=== PATIENT | female | born 1960 | race Two or more races ===

== ENCOUNTER 2025-05-17 18:36 | Inpatient (IN) | payer BC ==
[~2025-05-17] VITALS: Ht 160 cm; Wt 84.4 kg
[2025-05-17] MEDS: SODIUM CHLORIDE 0.9% 1,000 ML IV ONE (08:48)
--- NOTE | 2025-05-17 18:56 | ED.PDOC ---
History of Present Illness HPI Comments 64-year-old female who came to ER for nausea and vomiting. Patient denies any medical problems. Denies any abdominal surgeries. States she was having episodes of brownish vomitus since yesterday, 5 times, earlier today she started having blackish stools also. Noted abdominal distention. Denies any abdominal pain chest pains or shortness of breath. Denies taking any blood thinners REVIEW OF SYSTEMS: General: No fever, no chills, or fatigue HEENT: No sore throat, no earache, no congestion, no neck pain. Cardiac: No chest pain. No palpitations. Lungs: No shortness of breath, no cough. GI: (+) nausea, (+) vomiting, no diarrhea, no constipation, no abdominal pain, (+) melena : No dysuria, frequency, or urgency. No hematuria. Musculoskeletal: No joint pain , no joint swelling, no extremity edema. Skin: No rash, no itching. Neuro: No headache, no dizziness, no weakness EXAM: General: Awake, alert and oriented. No acute distress. Skin: Skin in warm, dry and intact, pale HEENT: The head is normocephalic and atraumatic. Conjunctivae are clear without exudates or hemorrhage. Sclera is non-icteric. EOM are intact. No signs of nystagmus. Eyelids are normal in appearance without swelling or lesions. Oral mucosa is pink and moist Neck: The neck is supple with normal range of motion. No JVD. Cardiac: Heart rate and rhythm are normal. No murmurs, gallops, or rubs are auscultated. Respiratory: No signs of respiratory distress. Lung sounds are clear in all lobes bilaterally without rales, rhonchi, or wheezes. Abdominal: Abdomen is distended , firm. Nontender to palpation. No guarding or rigidity. Extremities: Upper and lower extremities are atraumatic in appearance without deformity or edema. Neurological: The patient is awake, alert and oriented to person, place, and time with normal speech. Speech is clear. There is no facial asymmetry. Psychiatric: Appropriate mood and affect. 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 Was a procedure done?: No Differential Dx Considerations may include: Gastritis, gastroenteritis, GI bleed, diverticulitis, intra-abdominal mass, other X-Ray, Labs, Meds, VS Vital Signs Date Time Temp Pulse Resp B/P (MAP) Pulse Ox O2 Delivery O2 Flow Rate FiO2 05/17/25 20:47 98.8 116 20 138/90 (106) 100 98.8 05/17/25 18:40 98.6 112 17 136/87 98 98.6 Lab Test 05/17/25 21:33 05/17/25 19:36 Range/Units Lactic Acid Level Pending 2.4 *H 0.4-2.0 mmol/L White Blood Count 17.4 H 4.4-10.8 10^3/uL Red Blood Count 2.48 L 4.0-5.20 10^6/uL Hemoglobin 8.6 L 12.2-16.2 g/dL Hematocrit 25.7 L 36.0-46.0 % Mean Corpuscular Volume 103.8 H 80.0-100.0 fL Mean Corpuscular Hemoglobin 34.7 H 28.0-32.0 pg Mean Corpuscular Hemoglobin Concent 33.4 32.0-36.0 g/dL Red Cell Distribution Width 15.0 H 11.8-14.3 % Platelet Count 232 140-450 10^3/uL Mean Platelet Volume 8.2 6.9-10.8 fL Neutrophils (%) (Auto) 85.9 H 37.0-80.0 % Lymphocytes (%) (Auto) 5.0 L 10.0-50.0 % Monocytes (%) (Auto) 8.7 0.0-12.0 % Eosinophils (%) (Auto) 0.0 0.0-7.0 % Basophils (%) (Auto) 0.4 0.0-2.0 % Neutrophils # (Auto) 14.9 H 1.6-8.6 10 ^3/uL Lymphocytes # (Auto) 0.9 0.4-5.4 10 ^3/uL Monocytes # (Auto) 1.5 H 0-1.3 10 ^3/uL Eosinophils # (Auto) 0 0-0.8 10 ^3/uL Basophils # (Auto) 0.1 0-0.2 10 ^3/uL Nucleated Red Blood Cells 0.2 % Sodium Level 142 136-145 mmol/L Potassium Level 3.2 L 3.5-5.1 mmol/L Chloride Level 102 98-107 mmol/L Carbon Dioxide Level 25 20-31 mmol/L Anion Gap 15 5-15 Blood Urea Nitrogen 25 H 9-23 mg/dL Creatinine 0.60 0.550-1.02 mg/dL Glomerular Filtration Rate Calc 99 >90 mL/min BUN/Creatinine Ratio 41.7 H 10.0-20.0 Serum Glucose 128 H 74-106 mg/dL Calcium Level 9.4 8.7-10.4 mg/dL Total Bilirubin 0.8 0.2-1.0 mg/dL Aspartate Amino Transferase (AST) 112 H 13-40 U/L Alanine Aminotransferase (ALT) 35 7-40 U/L Alkaline Phosphatase 151 H 46-116 U/L Total Protein 7.2 5.7-8.2 g/dL Albumin 4.2 3.2-4.8 g/dL Current Medications Medications (Trade) Dose Ordered Sig/Karena Route Start Time Stop Time Status Last Admin Pantoprazole Sodium (Protonix) 40 mg ONCE ONCE IV 05/17/25 19:30 05/17/25 19:31 DC 05/17/25 20:52 Exam: CT CT AB PEL WITH IV CON ONLY History: abdominal pain distension gi bleed Comparison Study: None TECHNIQUE: Multidetector CT of the abdomen and pelvis with IV contrast. Axial, coronal and sagittal multiplanar reformats were obtained from the axial data set by the technologist. Radiation Dose Information: CT Dose: CTDI volume is 5.1 mGy. Dose-length product is 284.17 mGy*cm FINDINGS: Bibasilar atelectasis. Partially visualized heart is unremarkable. Mild hepatomegaly with hepatic steatosis. Spleen, gallbladder, pancreas and adrenal glands are unremarkable. 1 cm left renal cyst. Subcentimeter right renal lower pole hypodense lesion. Mild right pelviectasis. Otherwise, kidneys, ureters and urinary bladder are unremarkable. Uterus and adnexa are unremarkable. Mild gastric wall thickening with mild wall thickening of the proximal duodenum. The remainder of the small bowel loops unremarkable. Appendix is unremarkable. Mild wall thickening of the ascending colon, transverse colon, proximal descending colon , Sigmoid and rectum. Colonic diverticulosis. Trace ascites limits evaluation for pericolonic fat stranding/edema. No evidence of intraperitoneal free air. No evidence of aortic aneurysm or dissection. Mild atherosclerotic calcification of the aorta. No significant lymphadenopathy. Minimal body wall edema. No evidence of acute osseous abnormalities. Diffuse demineralization. IMPRESSION: Mild pancolitis. Gastroduodenitis. Colonic diverticulosis with Limited evaluation for diverticulitis, and trace ascites. Trace ascites. Time of 1ST Reevaluation: 18:53 Reevaluation 1ST: Unchanged Patient Education/Counseling: Need For Follow Up Family Education/Counseling: No Family Present SEPSIS Sepsis Screen Date sepsis recognized/suspect: May 17, 2025 Time Sepsis recognized/suspect: 1839 Recent Procedure: No On Antibiotic Therapy: No Respiratory Rate >20: No Heart Rate >90: Yes Temp<36 C (96.8 F) or >38.3 C: No SBP <90 or MAP <65 mmHG: No New Acute Mental Status Change: No Is the patient on CPAP, BIPAP,: No Physician Orders Urinalysis (05/17/25 19:20) Stool Occult Blood (05/17/25 19:20) Saline Lock (05/17/25 19:20) Ct Ab Pel With Iv Con Only (05/17/25 19:20) NS (05/17/25 21:45) Vital Signs Q1HR (05/17/25 21:45) Air Crew Officer (05/17/25 ) Rectal/Core Temps Only (05/17/25 21:45) Notify Md If Abnormal Vs (05/17/25 21:45) NS (05/17/25 21:45) Blood Culture (05/17/25 21:45) Urinalysis (05/17/25 21:45) NS (05/17/25 21:45) Vancomycin (05/17/25 21:45) Ceftriaxone Ivpb Rocephin (05/17/25 21:45) Vital Signs Date Time Temp Pulse Resp B/P (MAP) Pulse Ox O2 Delivery O2 Flow Rate FiO2 05/17/25 20:47 98.8 116 20 138/90 (106) 100 98.8 05/17/25 18:40 98.6 112 17 136/87 98 98.6 Laboratory Tests Test 05/17/25 19:36 05/17/25 21:33 Lactic Acid Level 2.4 mmol/L (0.4-2.0) *H Pending White Blood Count 17.4 10^3/uL (4.4-10.8) H Medications Medications Dose Ordered Sig/Karena Route Start Time Stop Time Status Last Admin Dose Admin Pantoprazole Sodium 40 mg ONCE ONCE IV 05/17/25 19:30 05/17/25 19:31 DC 05/17/25 20:52 Departure 1 Departure Time of Disposition: 21:47 Impression: Primary Impression: GI bleed Additional Impressions: Colitis Ascites Disposition: ADMITTED INPATIENT Condition: Stable Comments MDM: Extensive evaluation was performed in attempt to identify or rule out: (See differential diagnosis section) The following tests were ordered, and results were reviewed by me and discussed with patient: (See diagnostic results section) The following test were independently interpreted by me: N/A I reviewed and agreed with the following test results read by other providers: CT abdomen and pelvis with contrast I reviewed the following notes from the pt's past medical encounters: N/A Additional information was gathered from interviewing the following independent historians: Patient's daughter at bedside Discussion of management or test interpretation with external physician/other qualified health home care administrator: N/A Decision regarding hospitalization or escalation of hospital level of care: Risk and benefits of admission for further treatment of patient's condition was considered. Due to patient's current clinical condition, high risk of decline and poor outcome if discharged and need for further inpatient management and monitoring, patient will be admitted to the hospital. Drug therapy requiring intensive monitoring for toxicity: IV contrast Critical Care Note Critical Care Time?: No Stability Stability form required: No Heart Score Heart Score: Heart Score Response (Comments) Value History N/A 0 EKG N/A 0 Age N/A 0 Risk Factors N/A 0 Troponin N/A 0 Total 0 I personally scribed for SHOAIB INTERIANO MD ([email or web address]) on 05/17/25 at 18:56. El ectronically submitted by Lamine Ly ([facility]). I personally scribed for SHOAIB INTERIANO MD ([email or web address]) on 05/17/25 at 21:34. Electronically submitted by Lamine Ly ([facility]). SHOAIB INTERIANO MD May 17, 2025 18:56
[2025-05-17 19:48] LABS: Nucleated Red Blood Cells % 0.2 %
[2025-05-17 19:50] LABS: Hematocrit 25.7 % (36.0-46.0); Hemoglobin 8.6 g/dL (12.2-16.2); Mean Corpuscular Hemoglobin 34.7 pg (28.0-32.0); Mean Corpuscular Volume 103.8 fL (80.0-100.0)
[2025-05-17 20:05] LABS: Alanine Aminotransferase 35 U/L (7-40); Albumin 4.2 g/dL (3.2-4.8); Anion Gap 15 (5-15); BUN/Creatinine Ratio 41.7 (10.0-20.0); Bilirubin, Total 0.8 mg/dL (0.2-1.0); Calcium 9.4 mg/dL (8.7-10.4); Carbon Dioxide 25 mmol/L (20-31); Chloride 102 mmol/L (98-107); Sodium 142 mmol/L (136-145); Total Protein 7.2 g/dL (5.7-8.2)
[2025-05-17 20:18] LABS: Alkaline Phosphatase 151 U/L (46-116); Blood Urea Nitrogen 25 mg/dL (9-23); Glucose 128 mg/dL (74-106); Potassium 3.2 mmol/L (3.5-5.1)
[2025-05-17 20:25] LABS: Lactic Acid w/Reflex 2.4 mmol/L (0.4-2.0)
[2025-05-17] MEDS: IOHEXOL 300 MG/ML 100ML BOTTLE IJ ONE (20:44)
[2025-05-17] MEDS: PANTOPRAZOLE 40 MG/10 ML VIAL INJ IV ONE (20:52)
--- NOTE | 2025-05-17 21:03 | DVH ---
Exam: CT CT AB PEL WITH IV CON ONLY History: abdominal pain distension gi bleed Comparison Study: None TECHNIQUE: Multidetector CT of the abdomen and pelvis with IV contrast. Axial, coronal and sagittal multiplanar reformats were obtained from the axial data set by the technologist. Radiation Dose Information: CT Dose: CTDI volume is 5.1 mGy. Dose-length product is 284.17 mGy*cm FINDINGS: Bibasilar atelectasis. Partially visualized heart is unremarkable. Mild hepatomegaly with hepatic steatosis. Spleen, gallbladder, pancreas and adrenal glands are unremarkable. 1 cm left renal cyst. Subcentimeter right renal lower pole hypodense lesion. Mild right pelviectasis. Otherwise, kidneys, ureters and urinary bladder are unremarkable. Uterus and adnexa are unremarkable. Mild gastric wall thickening with mild wall thickening of the proximal duodenum. The remainder of the small bowel loops unremarkable. Appendix is unremarkable. Mild wall thickening of the ascending colon, transverse colon, proximal descending colon , Sigmoid and rectum. Colonic diverticulosis. Trace ascites limits evaluation for pericolonic fat stranding/edema. No evidence of intraperitoneal free air. No evidence of aortic aneurysm or dissection. Mild atherosclerotic calcification of the aorta. No significant lymphadenopathy. Minimal body wall edema. No evidence of acute osseous abnormalities. Diffuse demineralization. IMPRESSION: Mild pancolitis. Gastroduodenitis. Colonic diverticulosis with Limited evaluation for diverticulitis, and trace ascites. Trace ascites.
[2025-05-17] MEDS ORDERED: ONDANSETRON HCL 4 MG/2 ML VIAL IV PRN (22:45)
[2025-05-17] MEDS ORDERED: MORPHINE SULFATE INJ 2 MG/ml SYRG IV PRN (22:45)
[2025-05-17] MEDS ORDERED: NITROGLYCERIN 0.4 MG SL TAB SL PRN (22:45)
[2025-05-17 23:27] LABS: Hematocrit 25.3 % (36.0-46.0); Hemoglobin 8.2 g/dL (12.2-16.2)
[2025-05-17 23:46] LABS: INR 1.14 (0.9-1.15); Partial Thromboplastin Time 24.5 SEC (24.5-34.5); Prothrombin Time 11.9 sec (9.3-11.8)
[2025-05-18] MEDS: SODIUM CHLORIDE 0.9% 1,000 ML IV ONE ×3 (00:43→00:55)
[2025-05-18 00:54] VITALS: PULSE 100; RESP 18; O2SAT 99
[2025-05-18] MEDS: VANCOMYCIN 1GM/250ML KIT 250 ML IV ONE (01:24)
--- NOTE | 2025-05-18 01:37 | DVHHP2 ---
History of Present Illness Reason for Visit: Nausea and vomiting History of Present Illness 64-year-old female presents for evaluation of nausea and vomiting. She states his symptoms has been ongoing for the past two days. She reports vomiting dark colored emesis. She also states that over the past three days she has been ashley ving dark colored stools. Denies abdominal pain. No fever or chills. No other acute complaints. Past Medical History Denies Past Surgical History Denies Family History Noncontributory Smoke: No ALCOHOL: none Drugs: None Lives: with Family Review of Systems Review of Systems Review of systems are currently negative otherwise addressed in HPI. Allergies: Coded Allergies: NO KNOWN ALLERGIES (Unverified , 05/17/25) Medications Current Medications Medications Dose Ordered Sig/Karena Route Start Time Stop Time Status Last Admin Dose Admin Pantoprazole Sodium 40 mg DAILY IV 05/18/25 10:00 Ondansetron HCl 4 mg Q4HP PRN IV 05/17/25 22:45 Nitroglycerin 0.4 mg Q5MINP PRN SL 05/17/25 22:45 Morphine Sulfate 2 mg Q30M PRN IV 05/17/25 22:45 Exam Vital Signs Vital Signs Date Time Temp Pulse Resp B/P (MAP) Pulse Ox O2 Delivery O2 Flow Rate FiO2 05/18/25 01:17 98.5 100 18 141/81 (101) 99 98.5 05/18/25 00:54 Room Air* 0 21 Exam Gen: 64-year-old female in mild distress Skin: Warm, dry, normal color and texture, no rash. HEENT: Normocephalic atraumatic, mucous membranes moist and pink. Neck: Cervical and supraclavicular nodes normal without enlargement, trachea is midline, thyroid gland is normal without masses. Pulmonary: Clear to auscultation and percussion bilaterally. Cardiac: Regular rate and rhythm. No murmur Abdomen: Soft, nontender, nondistended, bowel sounds present all 4 quadrants, no guarding, no rigidity, no organomegaly. Extremities: No cyanosis, clubbing, no edema Neuro: Cranial nerves II through XII grossly intact, normal affect and speech, no focal motor deficits. Labs/Xrays ORDERING PHYSICIAN: SHOAIB INTERIANO MD PROCEDURE(s): ABPLIV - CT AB PEL WITH IV CON ONLY REASON: abdominal pain distension ? gi bleed ORDER NUMBER(s): [id number], ACCESSION NUMBER(s): [id number] Exam: CT CT AB PEL WITH IV CON ONLY History: abdominal pain distension gi bleed Comparison Study: None TECHNIQUE: Multidetector CT of the abdomen and pelvis with IV contrast. Axial, coronal and sagittal multiplanar reformats were obtained from the axial data set by the technologist. Radiation Dose Information: CT Dose: CTDI volume is 5.1 mGy. Dose-length product is 284.17 mGy*cm FINDINGS: Bibasilar atelectasis. Partially visualized heart is unremarkable. Mild hepatomegaly with hepatic steatosis. Spleen, gallbladder, pancreas and adrenal glands are unremarkable. 1 cm left renal cyst. Subcentimeter right renal lower pole hypodense lesion. Mild right pelviectasis. Otherwise, kidneys, ureters and urinary bladder are unremarkable. Uterus and adnexa are unremarkable. Mild gastric wall thickening with mild wall thickening of the proximal duodenum. The remainder of the small bowel loops unremarkable. Appendix is unremarkable. Mild wall thickening of the ascending colon, transverse colon, proximal desce nding colon , Sigmoid and rectum. Colonic diverticulosis. Trace ascites limits evaluation for pericolonic fat stranding/edema. No evidence of intraperitoneal free air. No evidence of aortic aneurysm or dissection. Mild atherosclerotic calcification of the aorta. No significant lymphadenopathy. Minimal body wall edema. No evidence of acute osseous abnormalities. Diffuse demineralization. IMPRESSION: Mild pancolitis. Gastroduodenitis. Colonic diverticulosis with Limited evaluation for diverticulitis, and trace ascites. Trace ascites. Labs Test 05/17/25 23:10 05/17/25 21:33 05/17/25 19:36 Range/Units Hemoglobin 8.2 L 12.2-16.2 g/dL Hematocrit 25.3 L 36.0-46.0 % Prothrombin Time 11.9 H 9.3-11.8 sec Prothrombin Time INR 1.14 0.9-1.15 Activated Partial Thromboplast Time 24.5 24.5-34.5 SEC Lactic Acid Level 2.8 *H 0.4-2.0 mmol/L White Blood Count 17.4 H 4.4-10.8 10^3/uL Red Blood Count 2.48 L 4.0-5.20 10^6/uL Mean Corpuscular Volume 103.8 H 80.0-100.0 fL Mean Corpuscular Hemoglobin 34.7 H 28.0-32.0 pg Mean Corpuscular Hemoglobin Concent 33.4 32.0-36.0 g/dL Red Cell Distribution Width 15.0 H 11.8-14.3 % Platelet Count 232 140-450 10^3/uL Mean Platelet Volume 8.2 6.9-10.8 fL Neutrophils (%) (Auto) 85.9 H 37.0-80.0 % Lymphocytes (%) (Auto) 5.0 L 10.0-50.0 % Monocytes (%) (Auto) 8.7 0.0-12.0 % Eosinophils (%) (Auto) 0.0 0.0-7.0 % Basophils (%) (Auto) 0.4 0.0-2.0 % Neutrophils # (Auto) 14.9 H 1.6-8.6 10 ^3/uL Lymphocytes # (Auto) 0.9 0.4-5.4 10 ^3/uL Monocytes # (Auto) 1.5 H 0-1.3 10 ^3/uL Eosinophils # (Auto) 0 0-0.8 10 ^3/uL Basophils # (Auto) 0.1 0-0.2 10 ^3/uL Nucleated Red Blood Cells 0.2 % Sodium Level 142 136-145 mmol/L Potassium Level 3.2 L 3.5-5.1 mmol/L Chloride Level 102 98-107 mmol/L Carbon Dioxide Level 25 20-31 mmol/L Anion Gap 15 5-15 Blood Urea Nitrogen 25 H 9-23 mg/dL Creatinine 0.60 0.550-1.02 mg/dL Glomerular Filtration Rate Calc 99 >90 mL/min BUN/Creatinine Ratio 41.7 H 10.0-20.0 Serum Glucose 128 H 74-106 mg/dL Calcium Level 9.4 8.7-10.4 mg/dL Total Bilirubin 0.8 0.2-1.0 mg/dL Aspartate Amino Transferase (AST) 112 H 13-40 U/L Alanine Aminotransferase (ALT) 35 7-40 U/L Alkaline Phosphatase 151 H 46-116 U/L Total Protein 7.2 5.7-8.2 g/dL Albumin 4.2 3.2-4.8 g/dL SEPSIS Sepsis Screen Date sepsis recognized/suspect: May 18, 2025 Time Sepsis recognized/suspect: 53 Recent Procedure: No On Antibiotic Therapy: Yes Respiratory Rate >20: No Heart Rate >90: Yes Temp<36 C (96.8 F) or >38.3 C: No SBP <90 or MAP <65 mmHG: No New Acute Mental Status Change: No Is the patient on CPAP, BIPAP,: No Physician Orders Urinalysis (05/17/25 19:20) Stool Occult Blood (05/17/25 19:20) Saline Lock (05/17/25 19:20) Ct Ab Pel With Iv Con Only (05/17/25 19:20) Sodium Chloride 0.9% (05/17/25 21:45) Vital Signs Q1HR (05/17/25 21:45) Retina Subspecialist (05/17/25 ) Rectal/Core Temps Only (05/17/25 21:45) Notify Md If Abnormal Vs (05/17/25 21:45) Blood Culture (05/17/25 21:45) Gastric Occult Blood (05/17/25 22:44) * Gi Dvh Senior Landscape Architect (05/17/25 22:44) Basic Metabolic Panel (05/18/25 04:00) Sodium Chloride 0.9% (05/17/25 22:45) Pantoprazole (Protonix) (05/18/25 10:00) Admit (05/17/25 22:44) Ondansetron Hcl (Zofran) (05/17/25 22:45) Complete Blood Count (05/18/25 04:00) Npo (Nothing By Mouth) Diet (05/18/25 Breakfast) Condition: Fair (05/17/25 22:44) Bedrest With Bathroom Privileg (05/17/25 22:44) Nitroglycerin Sublingual (Ntrostat Subli (05/17/25 22:45) Morphine Sulfate Injection (05/17/25 22:45) Stat Ekg For Chest Pain (05/17/25 22:44) Notify Md Of Changes From Base (05/17/25 22:44) Sound Equipment Mechanic For 24 Hours (05/17/25 22:44) Emergency Dysrhythmia Protocol (05/17/25 22:44) Rhythm Strips Once Every Shift (05/17/25 22:44) Oxygen By Nasal Cannula (05/17/25 22:44) Vital Signs Date Time Temp Pulse Resp B/P (MAP) Pulse Ox O2 Delivery O2 Flow Rate FiO2 05/18/25 01:17 98.5 100 18 141/81 (101) 99 98.5 05/18/25 00:54 98.5 100 18 141/81 (101) 99 98.5 05/18/25 00:54 100 18 99 Room Air* 0 21 05/17/25 22:56 99.1 112 18 129/75 (93) 99 99.1 05/17/25 20:47 98.8 116 20 138/90 (106) 100 98.8 05/17/25 18:40 98.6 112 17 136/87 98 98.6 Laboratory Tests Test 05/17/25 19:36 05/17/25 21:33 Lactic Acid Level 2.4 mmol/L (0.4-2.0) *H 2.8 mmol/L (0.4-2.0) *H White Blood Count 17.4 10^3/uL (4.4-10.8) H Medications Medications Dose Ordered Sig/Karena Route Start Time Stop Time Status Last Admin Dose Admin Ceftriaxone Sodium 50 ml @ 100 mls/hr ONCE ONCE IV 05/17/25 21:45 05/17/25 22:14 DC 05/18/25 00:54 100 MLS/HR Pantoprazole Sodium 40 mg ONCE ONCE IV 05/17/25 19:30 05/17/25 19:31 DC 05/17/25 20:52 40 MG Sodium Chloride 1,000 ml @ 1,000 mls/hr Q1H ONCE IV 05/17/25 21:45 05/17/25 22:44 DC 05/18/25 00:55 1,000 MLS/HR Sodium Chloride 1,000 ml @ 1,000 mls/hr Q1H ONCE IV 05/17/25 21:45 05/17/25 22:44 DC 05/18/25 00:55 1,000 MLS/HR Assessment/Plan Assessment/Plan Assessment GI bleed ? Colitis Possible early sepsis Plan Admit the patient to [facility] to the hospitalist GI consultation NPO Maintenance IV fluids Rocephin/Flagyl Pain management Continue treatment per orders. Plan discussed with: Patient My Orders Orders - HIRA ABREU Procedure Category Date Status Time Gastric Occult Blood LAB 05/17/25 Logged 22:44 * Gi Dvh Senior Landscape Architect CONS 05/17/25 Transmitted 22:44 Basic Metabolic Panel LAB 05/18/25 Logged 04:00 Sodium Chloride 0.9% PHA 05/17/25 In Process 22:45 Pantoprazole PHA 05/18/25 In Process (Protonix) 10:00 Admit ADMIT 05/17/25 Transmitted 22:44 Ondansetron Hcl PHA 05/17/25 In Process (Zofran) 22:45 Complete Blood Count LAB 05/18/25 Logged 04:00 Npo (Nothing By DIET 05/18/25 Transmitted Mouth) Diet Breakfast Condition: Fair ENRIQUETA 05/17/25 In Process 22:44 Bedrest With Bathroom [facility] 05/17/25 In Process Privileg 22:[address] [facility] 05/17/25 In Process Sublingual (Ntrostat 22:45 Morphine Sulfate PHA 05/17/25 In Process Injection 22:45 Stat Ekg For Chest [facility] 05/17/25 In Process Pain 22:44 Notify Md Of Changes [facility] 05/17/25 In Process From Base 22:44 Sound Equipment Mechanic For [facility] 05/17/25 In Process 24 Hours 22:44 Emergency Dysrhythmia [facility] 05/17/25 In Process Protocol 22:44 Rhythm Strips Once [facility] 05/17/25 In Process Every Shift 22:44 Oxygen By Nasal RT 05/17/25 Transmitted Cannula 22:44 Date of Service: May 17, 2025 Billing Provider: HIRA ABREU Common Visit Codes: [id number] INP/OBS CARE (HIGH) HIRA ABREU May 18, 2025 01:37
[2025-05-18 06:28] LABS: Sodium 143 mmol/L (136-145)
[2025-05-18 06:29] LABS: Anion Gap 14 (5-15); Carbon Dioxide 21 mmol/L (20-31)
[2025-05-18 06:32] LABS: Calcium 8.5 mg/dL (8.7-10.4); Chloride 108 mmol/L (98-107); Potassium 3.0 mmol/L (3.5-5.1)
[2025-05-18 06:35] LABS: BUN/Creatinine Ratio 28.0 (10.0-20.0); Blood Urea Nitrogen 14 mg/dL (9-23); Glucose 104 mg/dL (74-106); Hemoglobin 7.8 g/dL (12.2-16.2); Nucleated Red Blood Cells % 0.1 %
[2025-05-18 06:37] LABS: Hematocrit 23.6 % (36.0-46.0); Mean Corpuscular Hemoglobin 35.4 pg (28.0-32.0); Mean Corpuscular Volume 107.6 fL (80.0-100.0)
[2025-05-18] MEDS: PANTOPRAZOLE 40 MG/10 ML VIAL INJ IV SCH ×2 (07:10→22:00)
[2025-05-18] MEDS: SODIUM CHLORIDE 0.9% 1,000 ML IV SCH (09:00)
[2025-05-18 10:18] LABS: Magnesium 1.8 mg/dL (1.6-2.6)
[2025-05-18] MEDS: POTASSIUM CHL 20MEQ/100ML 100 ML IV SCH (10:28)
[2025-05-18] MEDS: PIPERACILLIN-TAZOB 3.375GM 100 ML IV ONE (10:48)
[2025-05-18 11:10] LABS: Lipase 46 U/L (12-53)
[2025-05-18 11:22] LABS: Iron 74.0 ug/dL (50-170)
[2025-05-18 11:25] LABS: Total Iron Binding Capacity 332.0 ug/dL (250-425)
[2025-05-18 12:31] LABS: Carcinoembryonic Antigen 2.85 ng/mL (<=5.0)
[2025-05-18 12:32] LABS: Ferritin 57.7 ng/mL (10-291)
[2025-05-18 13:40] VITALS: PULSE 95; RESP 14; O2SAT 98
[2025-05-18] MEDS: PIPERACILLIN-TAZOB 3.375GM 100 ML IV SCH (14:05)
[2025-05-18] MEDS: SOD CHL 0.9%/ KCL 40MEQ 1,000 ML IV SCH (15:00)
--- NOTE | 2025-05-18 15:06 | DVHCONRES ---
Date Seen: May 18, 2025 Resident Creating Document: BELLO MORA History of Present Illness 64-year-old female presents for evaluation of nausea and vomiting. She states his symptoms has been ongoing for the past two days. She reports vomiting dark colored emesis. She also states that over the past three days she has been having dark colored stools. Denies abdominal pain. Also reports weight loss for the past 2 years, patient does not see a doctor and never had colonoscopy or EGD. Patient denies taking any medications or denies any past medical history Patient seen and examined. Feeling better. Endoscopy scheduled for tomorrow. Allergies: Coded Allergies: NO KNOWN ALLERGIES (Unverified , 05/17/25) Current Medications Current Medications Medications (Trade) Dose Ordered Sig/Karena Route PRN Reason Start Time Stop Time Status Last Admin Pantoprazole Sodium (Protonix) 40 mg DAILY IV 05/18/25 10:00 05/18/25 09:02 DC 05/18/25 07:10 Ondansetron HCl (Zofran) 4 mg Q4HP PRN IV NAUSEA / VOMITING 05/17/25 22:45 Nitroglycerin (Ntrostat Sublingual) 0.4 mg Q5MINP PRN SL FOR CHEST PAIN 05/17/25 22:45 Morphine Sulfate 2 mg Q30M PRN IV FOR CHEST PAIN 05/17/25 22:45 Pantoprazole Sodium (Protonix) 40 mg BID IV 05/18/25 22:00 Sodium Chloride 1,000 ml @ 100 mls/hr Q10H IV 05/18/25 09:00 05/18/25 14:50 DC Potassium Chloride 100 ml @ 50 mls/hr Q2H IV 05/18/25 09:00 05/18/25 14:50 DC 05/18/25 10:28 Piperacillin Sod/ Tazobactam Sod 100 ml @ 25 mls/hr Q8HR IV 05/18/25 14:00 05/18/25 14:05 Potassium Chloride/Sodium Chloride 1,000 ml @ 100 mls/hr Q10H IV 05/18/25 15:00 UNV Vital Signs Vital Signs Date Time Temp Pulse Resp B/P (MAP) Pulse Ox O2 Delivery O2 Flow Rate FiO2 05/18/25 13:50 94 05/18/25 13:40 14 98 Room Air* 0 21 05/18/25 13:19 99.1 122/73 (89) 99.1 Physical Exam Patient lying in bed, in no acute distress General: Cachectic-appearing, afebrile, palor, mucosae are moist Cardiovascular: Regular S1 and S2. No murmurs, gallops or rubs. No JVD elevation. No pedal edema Respiratory: Normal B/L air entry on room air. Clear lung sounds on auscultation Abdomen: Soft, nontender, nondistended, normoactive bowel sounds, no rebound tenderness, no organomegaly, no masses Genitourinary: Deferred MSK/skin: Mobilizes 4 limbs. Skin is dry and warm Neurological: No motor, no sensitive deficits, normal speech. Pupils are isocoric and reactive. Psych/Mental Status: A/Ox3 Labs/Diagnostic Data Labs Test 05/18/25 14:04 05/18/25 12:08 05/18/25 05:54 05/17/25 23:10 Range/Units Erythrocyte Sedimentation Rate 18 0-20 mm/hr White Blood Count 14.0 H 4.4-10.8 10^3/uL Red Blood Count 2.19 L 4.0-5.20 10^6/uL Hemoglobin 7.8 L 12.2-16.2 g/dL Hematocrit 23.6 L 36.0-46.0 % Mean Corpuscular Volume 107.6 H 80.0-100.0 fL Mean Corpuscular Hemoglobin 35.4 H 28.0-32.0 pg Mean Corpuscular Hemoglobin Concent 32.9 32.0-36.0 g/dL Red Cell Distribution Width 15.3 H 11.8-14.3 % Platelet Count 197 140-450 10^3/uL Mean Platelet Volume 8.5 6.9-10.8 fL Neutrophils (%) (Auto) 80.3 H 37.0-80.0 % Lymphocytes (%) (Auto) 7.8 L 10.0-50.0 % Monocytes (%) (Auto) 10.8 0.0-12.0 % Eosinophils (%) (Auto) 0.6 0.0-7.0 % Basophils (%) (Auto) 0.5 0.0-2.0 % Neutrophils # (Auto) 11.2 H 1.6-8.6 10 ^3/uL Lymphocytes # (Auto) 1.1 0.4-5.4 10 ^3/uL Monocytes # (Auto) 1.5 H 0-1.3 10 ^3/uL Eosinophils # (Auto) 0.1 0-0.8 10 ^3/uL Basophils # (Auto) 0.1 0-0.2 10 ^3/uL Nucleated Red Blood Cells 0.1 % Reticulocyte Count (auto) 4.23 H 0.5-1.5 % Sodium Level 143 136-145 mmol/L Potassium Level 3.0 L 3.5-5.1 mmol/L Chloride Level 108 H 98-107 mmol/L Carbon Dioxide Level 21 20-31 mmol/L Anion Gap 14 5-15 Blood Urea Nitrogen 14 # 9-23 mg/dL Creatinine 0.50 L 0.550-1.02 mg/dL Glomerular Filtration Rate Calc 103 >90 mL/min BUN/Creatinine Ratio 28.0 H 10.0-20.0 Serum Glucose 104 74-106 mg/dL Calcium Level 8.5 L 8.7-10.4 mg/dL Magnesium Level 1.8 1.6-2.6 mg/dL Iron Level 74 50-170 ug/dL Total Iron Binding Capacity 332 250-425 ug/dL Percent Iron Saturation 22.3 15-50 % Ferritin 57.7 10-291 ng/mL C-Reactive Protein High Sensitivity 0.83 <1.0 mg/dL Lipase 46 12-53 U/L Carcinoembryonic Antigen 2.85 <=5.0 ng/mL Vitamin B12 Level 451 211-911 pg/mL Folic Acid 4.15 >5.38 ng/mL Plasma/Serum Blood Alcohol < 3.0 <10 mg/dL Prothrombin Time 11.9 H 9.3-11.8 sec Prothrombin Time INR 1.14 0.9-1.15 Activated Partial Thromboplast Time 24.5 24.5-34.5 SEC Test 05/17/25 21:33 05/17/25 19:36 Range/Units Lactic Acid Level 2.8 *H 0.4-2.0 mmol/L Total Bilirubin 0.8 0.2-1.0 mg/dL Aspartate Amino Transferase (AST) 112 H 13-40 U/L Alanine Aminotransferase (ALT) 35 7-40 U/L Alkaline Phosphatase 151 H 46-116 U/L Total Protein 7.2 5.7-8.2 g/dL Albumin 4.2 3.2-4.8 g/dL Assessment Intractable nausea and vomiting Sepsis Likely due to pancolitis Lactic acidosis Melena Anemia, likely mixed microcytic and macrocytic Transaminitis Unintentional weight loss Diverticulosis but no active diverticulitis CT abdomen shows mild pancolitis, Gastroduodenitis, Colonic diverticulosis with Limited evaluation for diverticulitis, and trace ascites. Plan/Recommendation Patient will be scheduled for upper endoscopy 05/19/2025. NPO after midnight. Continue clear liquid diet for now. Protonix 40 mg IV b.i.d. Gentle IV hydration Carafate b.i.d. Continue IV Zosyn IV iron supplemented Plan discussed with patient, daughter at bedside in which all questions have been answered Case discussed with Dr. Hdz Plan discussed with: Patient, Daughter BELLO MORA RESIDENT May 18, 2025 15:06
--- NOTE | 2025-05-18 15:24 | DVHPN2 ---
Subjective Patient denies any symptoms at this time Reviewed: Care Plan, H&P, Labs, Medications Changes from previous H/P or p: No Changes General: Per HPI Objective Vitals Vital Signs Date Time Temp Pulse Resp B/P (MAP) Pulse Ox O2 Delivery O2 Flow Rate FiO2 05/18/25 13:50 94 05/18/25 13:40 14 98 Room Air* 0 21 05/18/25 13:19 99.1 122/73 (89) 99.1 Intake/Output Intake and Output 05/18/25 07:00 Intake Total 2300 ml Balance 2300 ml Intake IV Total 2300 ml General Appearance: Alert, Oriented X3, Cooperative, mild distress HEENT: Atraumatic, PERRLA Lungs: Clear to auscultation, Normal air movement Cardiovascular: Normal S1, Normal S2 Abdomen: Normal bowel sounds, Soft, No tenderness, No hepatospenomegaly, No masses Musculoskeletal: Normal sensory function, Normal motor function Neuro: Normal gait, Normal speech, Strength at 5/5 X4 ext Skin: Dry, Intact Psych/Mental Status: Mental status NL, Mood NL Medications Current Medications Medications Dose Ordered Sig/Karena Route Start Time Stop Time Status Last Admin Dose Admin Ondansetron HCl 4 mg Q4HP PRN IV 05/17/25 22:45 Nitroglycerin 0.4 mg Q5MINP PRN SL 05/17/25 22:45 Morphine Sulfate 2 mg Q30M PRN IV 05/17/25 22:45 Pantoprazole Sodium 40 mg BID IV 05/18/25 22:00 Piperacillin Sod/ Tazobactam Sod 100 ml @ 25 mls/hr Q8HR IV 05/18/25 14:00 05/18/25 14:05 25 MLS/HR Potassium Chloride/Sodium Chloride 1,000 ml @ 100 mls/hr Q10H IV 05/18/25 15:00 Sucralfate 1 gm TID@0600,1130,2200 PO 05/18/25 15:15 UNV Laboratory Results Laboratory Tests 05/18/25 05:54 Chemistry Test 05/17/25 19:36 05/18/25 05:54 Albumin 4.2 g/dL (3.2-4.8) Calcium Level 9.4 mg/dL (8.7-10.4) 8.5 mg/dL (8.7-10.4) L Total Protein 7.2 g/dL (5.7-8.2) Magnesium Level 1.8 mg/dL (1.6-2.6) Coagulation Test 05/17/25 23:10 Prothrombin Time 11.9 sec (9.3-11.8) H Prothrombin Time INR 1.14 (0.9-1.15) Activated Partial Thromboplast Time 24.5 SEC (24.5-34.5) Lipid panel Test 05/18/25 05:54 Lipase 46 U/L (12-53) LFT Test 05/17/25 19:36 Alanine Aminotransferase (ALT) 35 U/L (7-40) Alkaline Phosphatase 151 U/L (46-116) H Aspartate Amino Transferase (AST) 112 U/L (13-40) H Total Bilirubin 0.8 mg/dL (0.2-1.0) Labs and/or images reviewed: Labs reviewed by me, Image(s) reviewed by me Assessment/Plan Assessment/Plan Impression: -sepsis -probable gastroenteritis -rule out upper GI bleed -cachexia -hypokalemia -microcytic anemia Plan: -GI consultation -PPI -continue IV Rocephin -IV fluids with potassium replacement -blood and stool cultures -start clear liquid diet, NPO after midnight -repeat labs in a.m. Total time spent with patient discussing and formulating plan of care: 35 minutes. This medical document was created using an electronic medical record system with [employer] dictation system. Although this document has been carefully reviewed, there may still be some phonetic and typographical errors. These areas are purely typographical due to imperfections of the software programs, and do not reflect any compromise in the patient's medical care. Plan discussed with: Patient, Other (RN) My Orders Orders - SARA MATTHEW NP Procedure Category Date Status Time Sod Chl 0.9%/ Kcl PHA 05/18/25 In Process 40meq 15:00 Complete Blood Count LAB 05/19/25 Verified 04:00 Basic Metabolic Panel LAB 05/19/25 Verified 04:00 Date of Service: May 18, 2025 Billing Provider: SARA MATTHEW NP Common Visit Codes: [id number] INP/OBS CARE(HIGH) SARA MATTHEW NP May 18, 2025 15:24
[2025-05-18] MEDS: SUCRALFATE 1 GM/10 ML ORAL SUSP PO SCH (15:39)
[2025-05-18 23:49] VITALS: BP 117/65; PULSE 88; RESP 17; TEMP 98.8; O2SAT 98
[2025-05-19] VITALS (16 sets, daily range): BP systolic 117–148; BP diastolic 65–97; PULSE 74–99; RESP 12–22; TEMP 97.5–98.8; O2SAT 95–100
[2025-05-19 06:47] LABS: Anion Gap 12 (5-15); Carbon Dioxide 22 mmol/L (20-31); Sodium 144 mmol/L (136-145)
[2025-05-19 06:48] LABS: Hematocrit 20.4 % (36.0-46.0); Mean Corpuscular Volume 108.0 fL (80.0-100.0)
[2025-05-19 06:50] LABS: Mean Corpuscular Hemoglobin 36.1 pg (28.0-32.0); Nucleated Red Blood Cells % 0.1 %
[2025-05-19 06:52] LABS: Calcium 8.0 mg/dL (8.7-10.4); Chloride 110 mmol/L (98-107); Potassium 3.0 mmol/L (3.5-5.1)
[2025-05-19 06:53] LABS: BUN/Creatinine Ratio 13.2 (10.0-20.0); Glucose 103 mg/dL (74-106)
[2025-05-19 06:55] LABS: Blood Urea Nitrogen 7 mg/dL (9-23)
[2025-05-19 07:05] LABS: Hemoglobin 6.8 g/dL (12.2-16.2)
[2025-05-19] MEDS ORDERED: POTASSIUM CHL 20MEQ/100ML 100 ML IV SCH (09:45)
--- NOTE | 2025-05-19 10:06 | DVHPN2 ---
Subjective Patient reports having black stool Reviewed: Care Plan, H&P, Labs, Medications Changes from previous H/P or p: No Changes General: Per HPI Objective Vitals Vital Signs Date Time Temp Pulse Resp B/P (MAP) Pulse Ox O2 Delivery O2 Flow Rate FiO2 05/19/25 09:00 98.1 87 16 119/74 (89) 95 98.1 05/19/25 08:21 Room Air* 0 21 Intake/Output Intake and Output 05/19/25 07:00 Intake Total 1000 ml Balance 1000 ml Intake Oral 0 ml IV Total 1000 ml # Voids 3 # Bowel Movements 1 General Appearance: Alert, Oriented X3, Cooperative, mild distress HEENT: Atraumatic, PERRLA Lungs: Clear to auscultation, Normal air movement Cardiovascular: Normal S1, Normal S2 Abdomen: Normal bowel sounds, Soft, No tenderness, No hepatospenomegaly, No masses Musculoskeletal: Normal sensory function, Normal motor function Neuro: Normal gait, Normal speech, Strength at 5/5 X4 ext Skin: Dry, Intact, Other (Pallor) Psych/Mental Status: Mental status NL, Mood NL Medications Current Medications Medications Dose Ordered Sig/Karena Route Start Time Stop Time Status Last Admin Dose Admin Ondansetron HCl 4 mg Q4HP PRN IV 05/17/25 22:45 Nitroglycerin 0.4 mg Q5MINP PRN SL 05/17/25 22:45 Morphine Sulfate 2 mg Q30M PRN IV 05/17/25 22:45 Pantoprazole Sodium 40 mg BID IV 05/18/25 22:00 05/19/25 08:48 40 MG Piperacillin Sod/ Tazobactam Sod 100 ml @ 25 mls/hr Q8HR IV 05/18/25 14:00 05/19/25 06:25 25 MLS/HR Potassium Chloride/Sodium Chloride 1,000 ml @ 100 mls/hr Q10H IV 05/18/25 15:00 05/19/25 01:30 100 MLS/HR Sucralfate 1 gm TID@0600,1130,2200 PO 05/18/25 15:15 05/18/25 22:00 1 GM Potassium Chloride 100 ml @ 50 mls/hr Q2H IV 05/19/25 09:45 05/19/25 15:44 UNV Laboratory Results Laboratory Tests 05/19/25 05:53 Chemistry Test 05/19/25 05:53 Calcium Level 8.0 mg/dL (8.7-10.4) L Microbiology Microbiology Date/Time Source Procedure Growth Status 05/17/25 22:11 Blood Blood Culture - Preliminary NO GROWTH AFTER 24 HOURS OF INCUBATION. Resulted Labs and/or images reviewed: Labs reviewed by me, Image(s) reviewed by me Assessment/Plan Assessment/Plan Impression: -sepsis -probable gastroenteritis -rule out upper GI bleed -cachexia -hypokalemia -microcytic anemia -elevated CA 125 Plan: Events: Patient's H&H decreased. 1 unit PRBC to be given. Patient's potassium 3.0. -KCl 60 mEq use -GI consultation : Plans for EGD today -PPI, Carafate -continue IV Rocephin -IV fluids with potassium replacement -blood and stool cultures -long discussion made with the patient's daughters as well as patient regarding lab work. Plans for transvaginal ultrasound tomorrow -repeat labs in a.m. Total time spent with patient discussing and formulating plan of care: 35 minutes. Total time spent with patient and family regarding advance care plannin minutes. This medical document was created using an electronic medical record system with [employer] dictation system. Although this document has been carefully reviewed, there may still be some phonetic and typographical errors. These areas are purely typographical due to imperfections of the software programs, and do not reflect any compromise in the patient's medical care. Plan discussed with: Patient, Daughter, Other (RN) My Orders Orders - SARA MATTHEW NP Procedure Category Date Status Time Sod Chl 0.9%/ Kcl PHA 05/18/25 In Process 40meq 15:00 Potassium Chl Meño PHA 05/19/25 Verified KCL 10:00 Date of Service: May 19, 2025 Billing Provider: SARA MATTHEW NP Common Visit Codes: [id number] INP/OBS CARE(HIGH) Secondary Visit Codes: [id number] CARE PLAN 30 MINUTES SARA MATTHEW NP May 19, 2025 10:06
[2025-05-19] MEDS ORDERED: SODIUM CHLORIDE LOCK 10 ML ONE (10:16)
[2025-05-19] MEDS: POTASSIUM CHLORIDE 60 MEQ, LIDOCAINE 1% (LOCAL ANESTH.) 6 ML in SODIUM CHL 0.9% 500 ML IV ONE (11:09)
--- NOTE | 2025-05-19 12:42 | DVH ---
EXAM: XY CHEST XRAY 1 VIEW Indication: Pain Technique: Single frontal view of the chest was obtained Comparison: None FINDINGS: Lines and Tubes: None Lungs: No focal consolidation. Pleura: No effusion. No pneumothorax. Cardiomediastinal contours: Unremarkable. Atherosclerotic vascular calcifications of the thoracic aorta are noted. Bones: No acute osseous abnormality. IMPRESSION: No acute cardiopulmonary disease.
[2025-05-19] MEDS: LIDOCAINE VISCOUS 2% 15ML UD ONE (15:12)
[2025-05-19] MEDS: diphenhydrAMINE HCL 50 MG/1 ML VL ONE (15:14)
[2025-05-19] MEDS: MIDAZOLAM HCL 5 MG/ML-1ML VIAL ONE (15:14)
[2025-05-19] MEDS: fentaNYL CITRATE 100 MCG/2 ML VL ONE (15:14)
--- NOTE | 2025-05-19 15:41 | DVHOP2 ---
Operative Report DATE OF OPERATION: 05/19/25 PROCEDURE: Upper Endoscopy with biopsy. PREOPERATIVE INDICATION: The patient is a 64 -year-old female undergoing endoscopy for anemia melena nausea and vomiting POSTOPERATIVE DIAGNOSES: 1. Patient had a deep 1-1.5 cm pre-pyloric antral gastric ulcer Calixto classification C with surrounding hyperemia erythema mucosal edema 2. Patient had moderate gastroduodenitis with multiple other superficial ero sions but no fresh or old blood in the upper GI tract 3. There was a 1-2 cm sliding-type hiatal hernia with slightly irregular squamocolumnar junction 4. There was a proximal esophageal stricture that was auto dilated with the endoscope PROCEDURE PERFORMED BY: Howard Hdz GI NURSE: Judi SCOPE: Olympus videoendoscope. ASA CLASS: 3 PREOPERATIVE MEDICATIONS: Versed 2 mg, Fentanyl 75 mcg, Benadryl 50 mg I administered moderate sedation throughout this _8_ minutes procedure. An independent trained observer pushed medications at my direction, and monitored the patient's level of consciousness and physiological status throughout. PROCEDURE IN DETAIL: After obtaining an informed consent, the patient was placed on left lateral decubitus position. The patient was then sedated with the above medications. A bite block was placed between her teeth. The endoscope was then passed through the oropharynx. Patient had a slight proximal esophageal stricture and endoscope was passed into the esophagus, and through the stomach and pylorus up to the second and third part of the duodenum. The endoscope was t hen withdrawn. The 2nd and 3rd part of the duodenum were normal. Duodenal bulb and postbulbar area area showed duodenitis with superficial erosions Biopsies were obtained. The pre-pyloric area and antrum showed gastritis with multiple tiny gastric ulcers and erosions There was a bigger 1.5 cm deep pre-pyloric antral gastric ulcer Calixto classification C with surrounding hyperemia erythema and mucosal edema Gastric antral biopsies were obtained. On retroflexion the fundus and cardia were normal. There was no fresh or old blood in the upper GI tract at this time The endoscope was then withdrawn into the distal esophagus where the patient had a 1-2 cm sliding-type hiatal hernia with slightly irregular squamocolumnar junction GE junction biopsies were obtained. The patient did have minimal mucosal oozing at the proximal esophagus area where the patient had a slight stricture that was auto dilated with the endoscope The patient tolerated the procedure well without difficulty. COMPLICATIONS : None SPECIMENS: Duodenal biopsies Gastric biopsies GE junction biopsies DISPOSITION: Transfer back to the floor Stable PLAN: 1. Await for biopsy result 2. Will place pt on Protonix 40 mg bid IV 3. Clear liquid diet advance to full liquid 4. Carafate suspension 1 g p.o. 4 times a day 5. Continue to monitor labs 6. Possible elective colonoscopy once patient is medically stabilized HOWARD HDZ MD May 19, 2025 15:41
[2025-05-19] MEDS: IRON SUCROSE COMPLEX 110 ML IV ONE (16:23)
[2025-05-19 16:29] LABS: Hemoglobin 9.4 g/dL (12.2-16.2); Nucleated Red Blood Cells % 0.3 %
[2025-05-19 16:31] LABS: Hematocrit 28.3 % (36.0-46.0); Mean Corpuscular Hemoglobin 34.4 pg (28.0-32.0); Mean Corpuscular Volume 103.6 fL (80.0-100.0)
[2025-05-19] MEDS: SUCRALFATE 1 GM/10 ML ORAL SUSP PO SCH (17:24)
--- NOTE | 2025-05-19 17:41 | DVH ---
Technique: Real-time ultrasound images through the pelvis using a transabdominal transducer. Indication: elevated CA 125 Comparison: CT abdomen pelvis from 05/17/2025 Findings: The uterus measures 5.5 cm. The endometrial stripe measures 4 mm. There are no focal masses. There is no abnormal flow in the endometrium. Cervical nabothian cysts measuring 13 mm. Right ovary measures 2.2 x 1.8 x 2.8 cm. Normal flow on color doppler images. Right ovarian/ adnexal region hypoechoic lesion /mass measuring 2.8 cm,. Left ovary measures 2.9 x 2.2 x 1.9 cm. Normal flow on color doppler images. No focal masses are identified. Small amount of free pelvic fluid. Impression: Right ovarian/ adnexal region hypoechoic lesion measuring 2.8 cm. Recommend MRI pelvis with and without contrast and environmental maintenance worker consultation to further evaluate exclude an ovarian neoplasm, especially given that the patient has elevated CA 125. Small amount of free pelvic fluid.
[2025-05-20] VITALS (8 sets, daily range): BP systolic 123–155; BP diastolic 74–91; PULSE 84–99; RESP 12–19; TEMP 97.4–99.3; O2SAT 95–98
[2025-05-20 07:01] LABS: Hematocrit 28.6 % (36.0-46.0); Hemoglobin 9.5 g/dL (12.2-16.2); Mean Corpuscular Hemoglobin 34.0 pg (28.0-32.0); Mean Corpuscular Volume 101.9 fL (80.0-100.0); Nucleated Red Blood Cells % 0.5 %
[2025-05-20] MEDS ORDERED: fentaNYL CITRATE 100 MCG/2 ML VL ONE (10:57)
[2025-05-20] MEDS ORDERED: SODIUM CHLORIDE LOCK 0 ML ONE (10:57)
[2025-05-20] MEDS ORDERED: KETAMINE 50mg/ML 1ml syringe ONE (10:57)
[2025-05-20] MEDS ORDERED: ONDANSETRON HCL 4 MG/2 ML VIAL ONE (10:57)
[2025-05-20] MEDS ORDERED: MIDAZOLAM HCL 2MG/2ML 2ml VIAL (1mg/ml) ONE (10:57)
[2025-05-20] MEDS ORDERED: LIDOCAINE 1% INJ PF 5ML AMP ONE (10:57)
[2025-05-20] MEDS ORDERED: PROPOFOL 10 MG/ML 20 ML IV ONE (10:57)
--- NOTE | 2025-05-20 11:07 | DVHPN2 ---
Subjective Denies any symptoms at this time Reviewed: Care Plan, H&P, Labs, Medications Changes from previous H/P or p: Changes General: Per HPI Objective Vitals Vital Signs Date Time Temp Pulse Resp B/P (MAP) Pulse Ox O2 Delivery O2 Flow Rate FiO2 05/20/25 09:00 98.6 99 17 134/74 (94) 97 98.6 05/20/25 08:07 Room Air* 0 21 Intake/Output Intake and Output 05/20/25 07:00 Intake Total 2945 ml Balance 2945 ml Intake Oral 500 ml IV Total 1845 ml Blood Product 300 ml Packed Cells 300 ml # Voids 5 # Bowel Movements 4 General Appearance: Alert, Oriented X3, Cooperative, mild distress HEENT: Atraumatic, PERRLA Lungs: Clear to auscultation, Normal air movement Cardiovascular: Normal S1, Normal S2 Abdomen: Normal bowel sounds, Soft, No tenderness, No hepatospenomegaly, No masses Musculoskeletal: Normal sensory function, Normal motor function Neuro: Normal gait, Normal speech, Strength at 5/5 X4 ext Skin: Dry, Intact, Other (Pallor) Psych/Mental Status: Mental status NL, Mood NL Medications Current Medications Medications Dose Ordered Sig/Karena Route Start Time Stop Time Status Last Admin Dose Admin Ondansetron HCl 4 mg Q4HP PRN IV 05/17/25 22:45 Nitroglycerin 0.4 mg Q5MINP PRN SL 05/17/25 22:45 Morphine Sulfate 2 mg Q30M PRN IV 05/17/25 22:45 Pantoprazole Sodium 40 mg BID IV 05/18/25 22:00 05/20/25 09:18 40 MG Piperacillin Sod/ Tazobactam Sod 100 ml @ 25 mls/hr Q8HR IV 05/18/25 14:00 05/20/25 06:34 25 MLS/HR Potassium Chloride/Sodium Chloride 1,000 ml @ 100 mls/hr Q10H IV 05/18/25 15:00 05/20/25 06:34 100 MLS/HR Sucralfate 1 gm TID@0600,1130,2200 PO 05/18/25 15:15 05/18/25 22:00 1 GM Sucralfate 1 gm QID@0600,1130,1700,2200 PO 05/19/25 17:00 05/20/25 06:00 1 GM Iron Sucrose 110 ml @ 110 mls/hr Q24H IV 05/20/25 12:00 05/24/25 12:59 Laboratory Results Laboratory Tests 05/20/25 06:01 Chemistry Test 05/20/25 06:01 Albumin Pending Calcium Level Pending Total Protein Pending LFT Test 05/20/25 06:01 Alanine Aminotransferase (ALT) Pending Alkaline Phosphatase Pending Aspartate Amino Transferase (AST) Pending Total Bilirubin Pending Microbiology Microbiology Date/Time Source Procedure Growth Status 05/17/25 22:11 Blood Blood Culture - Preliminary NO GROWTH AFTER 48 HOURS OF INCUBATION. Resulted Labs and/or images reviewed: Labs reviewed by me, Image(s) reviewed by me Assessment/Plan Assessment/Plan Impression: -sepsis -probable gastroenteritis -rule out upper GI bleed -cachexia -hypokalemia -microcytic anemia -right ovarian mass -alcoholism Plan: Events: EGD performed. No active bleeding. Esophagitis, gastritis, gastric ulcer noted -pelvic ultrasound reviewed. MRI of the pelvis if able given dental implants -GI consultation : Plans for EGD today -PPI, Carafate -continue IV Zosyn -IV fluids with potassium replacement -repeat labs in a.m. Total time spent with patient discussing and formulating plan of care: 35 minutes. This medical document was created using an electronic medical record system with [employer] dictation system. Although this document has been carefully reviewed, there may still be some phonetic and typographical errors. These areas are purely typographical due to imperfections of the software programs, and do not reflect any compromise in the patient's medical care. Plan discussed with: Patient, Other (RN) My Orders Orders - SARA MATTHEW NP Procedure Category Date Status Time Comprehensive LAB 05/20/25 In Process Metabolic Panel 10:18 Date of Service: May 20, 2025 Billing Provider: SARA MATTHEW NP Common Visit Codes: [id number] INP/OBS CARE(HIGH) SARA MATTHEW NP May 20, 2025 11:07
[2025-05-20 11:19] LABS: Alanine Aminotransferase 22 U/L (7-40); Albumin 3.3 g/dL (3.2-4.8); Alkaline Phosphatase 110 U/L (46-116); Anion Gap 12 (5-15); Carbon Dioxide 21 mmol/L (20-31); Glucose 92 mg/dL (74-106); Potassium 3.8 mmol/L (3.5-5.1); Sodium 142 mmol/L (136-145); Total Protein 6.0 g/dL (5.7-8.2)
[2025-05-20 11:20] LABS: BUN/Creatinine Ratio 9.8 (10.0-20.0); Bilirubin, Total 0.7 mg/dL (0.2-1.0); Blood Urea Nitrogen < 5 mg/dL (9-23); Calcium 8.3 mg/dL (8.7-10.4); Chloride 109 mmol/L (98-107)
[2025-05-20] MEDS: IRON SUCROSE COMPLEX 110 ML IV SCH (11:42)
[2025-05-20] MEDS: THIAMINE 100mg/ml INJ (200mg/2ml VIAL) IV SCH (11:42)
[2025-05-20] MEDS ORDERED: GADOTERATE MEG 10 MMOL/20ml INJ (0.5MMOL/ml) IV ONE (14:34)
--- NOTE | 2025-05-20 16:49 | DVHPN2 ---
Progress Note Date Seen: May 20, 2025 Resident Creating Document: BELLO MORA RESIDENT Medical Necessity Reason Pt with a Central, PICC or Fol: No Subjective Review of Systems 64-year-old female presents for evaluation of nausea and vomiting. She states his symptoms has been ongoing for the past two days. She reports vomiting dark colored emesis. She also states that over the past three days she has been having dark colored stools. Denies abdominal pain. Also reports weight loss for the past 2 years, patient does not see a doctor and never had colonoscopy or EGD. Patient denies taking any medications or denies any past medical history 05/18-Patient seen and examined. Feeling better. Endoscopy scheduled for tomorrow. 05/20-patient reports feeling better. No acute complaint. Objective vital signs Vital Sign Date Time Temp Pulse Resp B/P (MAP) Pulse Ox O2 Delivery O2 Flow Rate FiO2 05/20/25 16:37 98.2 92 19 139/84 (102) 98 98.2 05/20/25 08:07 Room Air* 0 21 Total Intake and Output 05/19/25 05/19/25 05/20/25 15:00 23:00 07:00 Intake Total 710 ml 835 ml 1400 ml Balance 710 ml 835 ml 1400 ml medications Current Medications Medications Dose Ordered Sig/Karena Route Start Time Stop Time Status Last Admin Dose Admin Ondansetron HCl 4 mg Q4HP PRN IV 05/17/25 22:45 Nitroglycerin 0.4 mg Q5MINP PRN SL 05/17/25 22:45 Morphine Sulfate 2 mg Q30M PRN IV 05/17/25 22:45 Pantoprazole Sodium 40 mg BID IV 05/18/25 22:00 05/20/25 09:18 40 MG Piperacillin Sod/ Tazobactam Sod 100 ml @ 25 mls/hr Q8HR IV 05/18/25 14:00 05/20/25 16:15 25 MLS/HR Potassium Chloride/Sodium Chloride 1,000 ml @ 100 mls/hr Q10H IV 05/18/25 15:00 05/20/25 06:34 100 MLS/HR Sucralfate 1 gm QID@0600,1130,1700,2200 PO 05/19/25 17:00 05/20/25 11:42 1 GM Iron Sucrose 110 ml @ 110 mls/hr Q24H IV 05/20/25 12:00 05/24/25 12:59 05/20/25 11:42 110 MLS/HR Thiamine HCl 100 mg DAILY IV 05/20/25 11:15 05/20/25 11:42 100 MG Examination Patient lying in bed, in no acute distress General: Cachectic-appearing, afebrile, palor, mucosae are moist Cardiovascular: Regular S1 and S2. No murmurs, gallops or rubs. No JVD elevation. No pedal edema Respiratory: Normal B/L air entry on room air. Clear lung sounds on auscultation Abdomen: Soft, nontender, nondistended, normoactive bowel sounds, no rebound tenderness, no organomegaly, no masses Genitourinary: Deferred MSK/skin: Mobilizes 4 limbs. Skin is dry and warm Neurological: No motor, no sensitive deficits, normal speech. Pupils are isocoric and reactive. Psych/Mental Status: A/Ox3 laboratory and microbiology Laboratory Tests 05/20/25 06:01 Test 05/20/25 06:01 Range/Units Serum Glucose 92 74-106 mg/dL Microbiology Date/Time Source Procedure Growth Status 05/20/25 10:48 Stool Stool Culture - Preliminary Resulted 05/20/25 10:48 Stool Shiga Toxin I & II - Final Resulted 05/17/25 22:11 Blood Blood Culture - Preliminary NO GROWTH AFTER 48 HOURS OF INCUBATION. Resulted Labs and/or images reviewed: Labs reviewed by me, Image(s) reviewed by me Problem List/Assessment/Plan Problem List/Assessment/Plan Intractable nausea and vomiting Melena secondary to pre-pyloric gastric ulcer Moderate gastroduodenitis ? Right ovarian/adnexal region mass Sepsis Likely due to pancolitis Lactic acidosis 1-2 cm sliding-type hiatal hernia Anemia, likely mixed microcytic and macrocytic Transaminitis Unintentional weight loss Diverticulosis but no active diverticulitis CT abdomen shows mild pancolitis, Gastroduodenitis, Colonic diverticulosis with Limited evaluation for diverticulitis, and trace ascites. POSTOPERATIVE DIAGNOSES: 1. Patient had a deep 1-1.5 cm pre-pyloric antral gastric ulcer Calixto classification C with surrounding hyperemia erythema mucosal edema 2. Patient had moderate gastroduodenitis with multiple other superficial erosions but no fresh or old blood in the upper GI tract 3. There was a 1-2 cm sliding-type hiatal hernia with slightly irregular squamocolumnar junction 4. There was a proximal esophageal stricture that was auto dilated with the endoscope Plan/Recommendation Continue Protonix 40 mg IV b.i.d., diet advanced to full liquid. Continue Carafate suspension 1 g p.o. 4 times a day. Recommended colonoscopy with patient declined. Risks explained. H&H stable, monitor H&H [place] [id number] Pelvic ultrasound shows Right ovarian/ adnexal region hypoechoic lesion measuring 2.8 cm. Recommend MRI pelvis with and without contrast and horse show manager consultation to further evaluate exclude an ovarian neoplasm, especially given that the patient has elevated CA 125. Small amount of free pelvic fluid. Recommend OBGYN consultation Stool culture negative preliminary Gentle IV hydration Continue IV Zosyn IV iron supplemented Plan discussed with patient, daughter at bedside in which all questions have been answered Case discussed with Dr. Hdz Plan discussed with: Patient Sepsis reassessment post fluid Is the fluid challenge complet: Yes Date of Reassessment: May 18, 2025 Time of Reassessment: 154 Blood Culture Time: 2145 Time Antibiotics Given: 005 Systolic BP: 129 Diastolic BP: 56 Blood Pressure Mean: 80 Respiration: 17 Respiratory Effort: Non-Labored, Labored Respiratory Pattern: Regular Oxygen Saturation: 99 Pulse Rate: 97 Pulse Location: Radial Pulse Strength: Normal Pulse Assessment Method: Palpation Pulse Rhythm: Regular Capillary Refill: < 3 seconds Heart Sounds: S1 & S2 Breath sounds: Clear Skin Moisture: Dry Skin Tugor: WNL Skin Color: WNL BELLO MORA RESIDENT May 20, 2025 16:49
[2025-05-20 17:16] LABS: Urine Protein, UAD Negative (Negative)
--- NOTE | 2025-05-20 21:03 | DVH ---
EXAM: MRI PELVIS WITH CONTRAST MRI HISTORY: Ovarian mass COMPARISON: US PELVIC on DOS: 05/19/25 TECHNIQUE: Multiplanar, multisequence imaging of the pelvis for genitourinary evaluation was performed with and without contrast. FINDINGS: REPRODUCTIVE: Normal appearance of the uterus without suspicious mass. Normal size given the patient's age. Small nabothian cysts. Cervix appears within normal limits endometrial stripe is within normal limits and size. Atrophy junctional zone in regards to the clinical question, markedly low T2 signal, nonenhancing structure located along the right adnexa likely corresponding with area of concern measuring 2 cm. BLADDER: Normal enhancement without suspicious lesions or hydronephrosis. VISUALIZED BOWEL: Minimal sigmoid diverticulosis VASCULATURE: Unremarkable. LYMPHADENOPATHY: No evidence for lymphadenopathy. ASCITES: Small volume pelvic ascites MUSCULOSKELETAL: Bone marrow signal is normal. OTHER: None IMPRESSION: 1. Oval circumscribed T2 hypointense structure with intrinsic low T1 signal. No significant enhancement. Low T2 signal adnexal masses raises possibility for fibroma /fibrous component given circumscribed nature, consideration for ovarian fibroma. 2. Lack of enhancement in the setting of fibrous nature is considered atypical and therefore consider short-term imaging follow up however given lack of overall enhancement, malignancy is considered unlikely 3. Small volume pelvic ascites and sigmoid diverticulosis.
[2025-05-21] VITALS (7 sets, daily range): BP systolic 130–145; BP diastolic 76–85; PULSE 77–84; RESP 12–18; TEMP 36.4; O2SAT 96–98
--- NOTE | 2025-05-21 11:58 | ECG ---
[facility] Test Date: 2025-05-19 Test Time: 13:24:58 Pat Name: HELEN JACKSON Department: Respiratoy Room: [facility] Gender: F Stem Lead Former: : 1960 Requested By: SARA MATTHEW Order Number: [id number] Reading MD: Rad Felix Measurements Intervals [place] Rate: 86 P: 22 NH: 140 QRS: 1 QRSD: 75 T: 13 QT: 399 QTc: 478 Interpretive Statements Sinus rhythm Low voltage, precordial leads Baseline wander in lead(s) V3,V6 Electronically Signed On 05-21-2025 19:24:37 PST by Rad Felix Please click the below link to view image of tracing.
[2025-05-21] MEDS ORDERED: PANT40TA2 PO (11:59)
[2025-05-21] MEDS ORDERED: AUG875T PO (11:59)
[2025-05-21] MEDS ORDERED: SUCR1TAB31 OR (11:59)
--- NOTE | 2025-05-21 12:11 | DVHPN2 ---
Progress Note Date Seen: May 21, 2025 Resident Creating Document: BELLO MORA RESIDENT Medical Necessity Reason Pt with a Central, PICC or Fol: No Subjective Review of Systems Reports feeling better. Objective vital signs Vital Sign Date Time Temp Pulse Resp B/P (MAP) Pulse Ox O2 Delivery O2 Flow Rate FiO2 05/21/25 09:00 97.6 77 18 135/81 (99) 96 97.6 05/21/25 08:15 Room Air* 0 21 Total Intake and Output 05/20/25 05/20/25 05/21/25 15:00 23:00 07:00 Intake Total 100 ml 1160 ml 400 ml Balance 100 ml 1160 ml 400 ml medications Current Medications Medications Dose Ordered Sig/Karena Route Start Time Stop Time Status Last Admin Dose Admin Ondansetron HCl 4 mg Q4HP PRN IV 05/17/25 22:45 Nitroglycerin 0.4 mg Q5MINP PRN SL 05/17/25 22:45 Morphine Sulfate 2 mg Q30M PRN IV 05/17/25 22:45 Pantoprazole Sodium 40 mg BID IV 05/18/25 22:00 05/21/25 10:44 40 MG Piperacillin Sod/ Tazobactam Sod 100 ml @ 25 mls/hr Q8HR IV 05/18/25 14:00 05/21/25 06:47 25 MLS/HR Potassium Chloride/Sodium Chloride 1,000 ml @ 100 mls/hr Q10H IV 05/18/25 15:00 05/21/25 10:58 100 MLS/HR Sucralfate 1 gm QID@0600,1130,1700,2200 PO 05/19/25 17:00 05/21/25 06:47 1 GM Iron Sucrose 110 ml @ 110 mls/hr Q24H IV 05/20/25 12:00 05/24/25 12:59 05/20/25 11:42 110 MLS/HR Thiamine HCl 100 mg DAILY IV 05/20/25 11:15 05/21/25 10:44 100 MG Examination Patient lying in bed, in no acute distress General: Cachectic-appearing, afebrile, palor, mucosae are moist Cardiovascular: Regular S1 and S2. No murmurs, gallops or rubs. No JVD elevation. No pedal edema Respiratory: Normal B/L air entry on room air. Clear lung sounds on auscultation Abdomen: Soft, nontender, nondistended, normoactive bowel sounds, no rebound tenderness, no organomegaly, no masses Genitourinary: Deferred MSK/skin: Mobilizes 4 limbs. Skin is dry and warm Neurological: No motor, no sensitive deficits, normal speech. Pupils are isocoric and reactive. Psych/Mental Status: A/Ox3 laboratory and microbiology Laboratory Tests 05/20/25 06:01 Test 05/20/25 06:01 Range/Units Serum Glucose 92 74-106 mg/dL Microbiology Date/Time Source Procedure Growth Status 05/20/25 10:48 Stool Stool Culture - Preliminary Resulted 05/20/25 10:48 Stool Shiga Toxin I & II - Final Resulted 05/17/25 22:11 Blood Blood Culture - Preliminary NO GROWTH AFTER 72 HOURS OF INCUBATION. Resulted Labs and/or images reviewed: Labs reviewed by me, Image(s) reviewed by me Problem List/Assessment/Plan Problem List/Assessment/Plan Intractable nausea and vomiting Melena secondary to pre-pyloric gastric ulcer Moderate gastroduodenitis ? Right ovarian/adnexal region mass Sepsis Likely due to pancolitis Lactic acidosis 1-2 cm sliding-type hiatal hernia Anemia, likely mixed microcytic and macrocytic Transaminitis Unintentional weight loss Diverticulosis but no active diverticulitis CT abdomen shows mild pancolitis, Gastroduodenitis, Colonic diverticulosis with Limited evaluation for diverticulitis, and trace ascites. MRI abdomen shows Oval circumscribed T2 hypointense structure with intrinsic low T1 signal. No significant enhancement. Low T2 signal adnexal masses raises possibility for fibroma /fibrous component given circumscribed nature, consideration for ovarian fibroma. 2. Lack of enhancement in the setting of fibrous nature is considered atypical and therefore consider short-term imaging follow up however given lack of overall enhancement, malignancy is considered unlikely POSTOPERATIVE DIAGNOSES: 1. Patient had a deep 1-1.5 cm pre-pyloric antral gastric ulcer Calixto classification C with surrounding hyperemia erythema mucosal edema 2. Patient had moderate gastroduodenitis with multiple other superficial erosions but no fresh or old blood in the upper GI tract 3. There was a 1-2 cm sliding-type hiatal hernia with slightly irregular squamocolumnar junction 4. There was a proximal esophageal stricture that was auto dilated with the endoscope Plan/Recommendation Continue Protonix 40 mg IV b.i.d., diet advanced to full liquid. Continue Carafate suspension 1 g p.o. 4 times a day. Recommended colonoscopy with patient declined. Risks explained. Patient prefers to follow up outpatient for colonoscopy. H&H stable, monitor H&H CA [id number] Pelvic ultrasound shows Right ovarian/ adnexal region hypoechoic lesion measuring 2.8 cm. MRI abdomen shows adnexal mass possible fibroma, but atypical, short-term imaging follow up. Recommend OBGYN consultation given adnexal mass and elevated CA 125 Stool culture negative preliminary Gentle IV hydration Continue IV Zosyn IV iron supplemented Plan discussed with patient, daughter at bedside in which all questions have been answered Case discussed with Dr. Hdz Plan discussed with: Patient, Daughter Sepsis reassessment post fluid Is the fluid challenge complet: Yes Date of Reassessment: May 18, 2025 Time of Reassessment: 0155 Blood Culture Time: 2146 Time Antibiotics Given: 0054 Systolic BP: 129 Diastolic BP: 56 Blood Pressure Mean: 80 Respiration: 17 Respiratory Effort: Non-Labored, Labored Respiratory Pattern: Regular Oxygen Saturation: 99 Pulse Rate: 97 Pulse Location: Radial Pulse Strength: Normal Pulse Assessment Method: Palpation Pulse Rhythm: Regular Capillary Refill: < 3 seconds Heart Sounds: S1 & S2 Breath sounds: Clear Skin Moisture: Dry Skin Tugor: WNL Skin Color: WNL BELLO MORA RESIDENT May 21, 2025 12:11
--- NOTE | 2025-05-21 12:48 | DVHDS2 ---
Discharge Summary Date of Admission May 17, 2025 at 22:44 Date of Discharge: May 21, 2025 Admitting Diagnosis Nausea and vomiting Labs/Diagnostic Data: Laboratory Results Test 05/20/25 10:49 05/20/25 10:48 05/20/25 10:38 05/20/25 06:01 Stool Occult Blood Positive (Negative) Stool Occult Blood Sample #3 (Negative) Stool for White Cells None seen Urine Color Light-yellow (Yellow) Urine Clarity Clear (Clear) Urine pH 6.5 (5.0-9.0) Urine Specific [place] 1.012 (1.001-1.035) Urine Protein Negative (Negative) Urine Ketones Trace (Negative) Urine Blood Trace /uL (Negative) Urine Nitrite Negative (Negative) Urine Bilirubin Negative (Negative) Urine Urobilinogen Normal mg/dL (Negative) Urine Leukocyte Esterase Negative /uL (Negative) Urine RBC <1 /hpf (0 - 4) Urine Microscopic WBC < 1 /HPF (0-5) Urine Squamous Epithelial Cells Few /hpf (<5) Urine Bacteria None seen /hpf (None Seen) Urine Glucose Normal mg/dL (Normal) White Blood Count 12.7 10^3/uL (4.4-10.8) Red Blood Count 2.80 10^6/uL (4.0-5.20) Hemoglobin 9.5 g/dL (12.2-16.2) Hematocrit 28.6 % (36.0-46.0) Mean Corpuscular Volume 101.9 fL (80.0-100.0) Mean Corpuscular Hemoglobin 34.0 pg (28.0-32.0) Mean Corpuscular Hemoglobin Concent 33.4 g/dL (32.0-36.0) Red Cell Distribution Width 17.3 % (11.8-14.3) Platelet Count 182 10^3/uL (140-450) Mean Platelet Volume 8.4 fL (6.9-10.8) Neutrophils (%) (Auto) 84.8 % (37.0-80.0) Lymphocytes (%) (Auto) 4.6 % (10.0-50.0) Monocytes (%) (Auto) 8.7 % (0.0-12.0) Eosinophils (%) (Auto) 1.6 % (0.0-7.0) Basophils (%) (Auto) 0.3 % (0.0-2.0) Neutrophils # (Auto) 10.8 10 ^3/uL (1.6-8.6) Lymphocytes # (Auto) 0.6 10 ^3/uL (0.4-5.4) Monocytes # (Auto) 1.1 10 ^3/uL (0-1.3) Eosinophils # (Auto) 0.2 10 ^3/uL (0-0.8) Basophils # (Auto) 0 10 ^3/uL (0-0.2) Nucleated Red Blood Cells 0.5 % Sodium Level 142 mmol/L (136-145) Potassium Level 3.8 mmol/L (3.5-5.1) Chloride Level 109 mmol/L (98-107) Carbon Dioxide Level 21 mmol/L (20-31) Anion Gap 12 (5-15) Blood Urea Nitrogen < 5 mg/dL (9-23) Creatinine 0.51 mg/dL (0.550-1.02) Glomerular Filtration Rate Calc 103 mL/min (>90) BUN/Creatinine Ratio 9.8 (10.0-20.0) Serum Glucose 92 mg/dL (74-106) Calcium Level 8.3 mg/dL (8.7-10.4) Total Bilirubin 0.7 mg/dL (0.2-1.0) Aspartate Amino Transferase (AST) 76 U/L (13-40) Alanine Aminotransferase (ALT) 22 U/L (7-40) Alkaline Phosphatase 110 U/L (46-116) Total Protein 6.0 g/dL (5.7-8.2) Albumin 3.3 g/dL (3.2-4.8) Test 05/18/25 14:04 05/18/25 12:08 05/18/25 05:54 05/17/25 23:10 CA 19-9 Antigen 40 U/mL (0-35) CA 125 Antigen 166.0 U/mL (0.0-38.1) Erythrocyte Sedimentation Rate 18 mm/hr (0-20) Reticulocyte Count (auto) 4.23 % (0.5-1.5) Magnesium Level 1.8 mg/dL (1.6-2.6) Iron Level 74 ug/dL (50-170) Total Iron Binding Capacity 332 ug/dL (250-425) Percent Iron Saturation 22.3 % (15-50) Ferritin 57.7 ng/mL (10-291) C-Reactive Protein High Sensitivity 0.83 mg/dL (<1.0) Lipase 46 U/L (12-53) Carcinoembryonic Antigen 2.85 ng/mL (<=5.0) Vitamin B12 Level 451 pg/mL (211-911) Folic Acid 4.15 ng/mL (>5.38) Plasma/Serum Blood Alcohol < 3.0 mg/dL (<10) Prothrombin Time 11.9 sec (9.3-11.8) Prothrombin Time INR 1.14 (0.9-1.15) Activated Partial Thromboplast Time 24.5 SEC (24.5-34.5) Test 05/17/25 21:33 Lactic Acid Level 2.8 mmol/L (0.4-2.0) Other Laboratory Tests 05/20/25 06:01 Brief Hx & Hospital Course: History of Present Illness 64-year-old female presents for evaluation of nausea and vomiting. She states his symptoms has been ongoing for the past two days. She reports vomiting dark colored emesis. She also states that over the past three days she has been having dark colored stools. Denies abdominal pain. No fever or chills. No other acute complaints. Course of hospital started on IV Zosyn, IV hydration, as well as being made NPO at initiation of treatment. Patient's H&H and continued to drop, with the patient requiring 1 unit of PRBCs. Patient's leukocytosis improved. Patient did undergo EGD with findings of gastric ulcer, esophageal stricture, as well as gastritis, esophagitis, as well as duodenitis. Protonix 40 mg IV b.i.d. as well as Carafate was also initiated with the patient. CA 125 was ordered with the patient at the time of admission, with it being found to be elevated. 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 This was discussed with the patient. Patient's clinical symptoms have resolved. She is tolerating oral intake without any issues. Patient does have a history of drinking Tequila daily at home. Instruction was given to the patient to abstain or decrease her alcohol intake given probable etiology for her symptoms. Clinically she is stable to be discharged home. She will follow up with Dr. Maury Hdz in 3-4 weeks, as with the discharge Clinic in one week. She will be continued on Protonix 40 mg p.o. b.i.d. for 30 days, Carafate 1 g a.c./HS for 30 days, as well as Augmentin 875 mg p.o. b.i.d. for seven days. Family and patient are agreeable with discharge plan. All questions answered. Physical examination General: Alert and Oriented x3. No acute distress. Well-nourished. Eyes: EOMI. Anicteric. HENT: Moist mucous membranes. Lungs: Clear to auscultation bilaterally. No accessory muscle use. Cardiovascular: Regular rate and rhythm. No murmur. No JVD. Abdomen: Soft, non-tender and non-distended. No palpable masses. Extremities: No edema. Non-tender. Skin: No rashes or lesions. Warm. Neurologic: No focal neurological deficits. CN II-XII grossly intact, but not individually tested. Psychiatric: Cooperative. Appropriate mood and affect. Total time spent with patient discussing and formulating plan of care: 35 minutes. This medical document was created using an electronic medical record system with [employer] dictation system. Although this document has been carefully reviewed, there may still be some phonetic and typographical errors. These areas are purely typographical due to imperfections of the software programs, and do not reflect any compromise in the patient's medical care. Consults/Reason for consult Gastroenterology: Abdominal pain, coffee-ground emesis Operations or Procedures EGD Condition at Discharge: Fair Final Diagnosis/Problems List Upper GI bleed -sepsis -probable gastroenteritis -rule out upper GI bleed -cachexia -hypokalemia -microcytic anemia -right ovarian mass -alcoholism Discharge Disposition: Home Discharge Instruct/Medications Diet: Regular Activity: No Restrictions, As Tolerated Follow Up/Referral: Follow up with discharge Clinic in one week Follow up with Dr. Maury Hdz in 2-3 weeks Follow up with [facility] as an outpatient Medications: Carafate 1 g tablet a.c. and HS Protonix 40 mg p.o. b.i.d. Augmentin 875 mg p.o. b.i.d. x7 days Scheduled Amoxicillin & Pot Clavulanate (Augmentin Tablet), 875 MG PO BID Pantoprazole Sodium Sesquihydr (Protonix), 40 MG PO BID Sucralfate (Carafate), 1 GM OR ACHS 36 Discharge Statement: "Patient was advised to return to the ER or call 911 if any headaches, dizziness, shortness of breath, chest pain, abdominal pain, bleeding, fevers, or worsening of medical condition. Patient was counseled about treatment plan, medications, possible side effects, patientverbalized understanding. All questions were answered to the best of my ability. This discharge took greater then 30 minutes in planning, reviewing documentation, counseling the patient, and discussing with other team members." ASSESSMENT ASSESSMENT Assessment Upper GI bleed Date of Service: May 21, 2025 Billing Provider: SARA MATTHEW NP Common Visit Codes: 85099-SZZ/OBS DISCH DAY >30min Secondary Visit Codes: 31803-DZOVGSEW CARE PLAN 30 MINUTES SARA MATTHEW NP May 21, 2025 12:48
== END 2025-05-21 17:00 | disposition home or self-care (01) | DRG 871 ==
LOC: ER 18:36 → OVERFLOW 22:44 → TELE-EAST 05-18 23:56
PROVIDERS: ADMIT Nurse Practitioner Acute Care; ATTEND Nurse Practitioner Acute Care
PROC: 30233N1 Transfusion of Nonautologous Red Blood Cells into Peripheral Vein, Percutaneous Approach (ICD-10-PCS; 2025-05-19)
PROC: 0DB68ZX Excision of Stomach, Via Natural or Artificial Opening Endoscopic, Diagnostic (ICD-10-PCS; 2025-05-19)
PROC: 0DB48ZX Excision of Esophagogastric Junction, Via Natural or Artificial Opening Endoscopic, Diagnostic (ICD-10-PCS; 2025-05-19)
PROC: 0DB98ZX Excision of Duodenum, Via Natural or Artificial Opening Endoscopic, Diagnostic (ICD-10-PCS; principal; 2025-05-19 15:10)
DX: A41.9 Sepsis, unspecified organism (principal); K20.91 Esophagitis, unspecified with bleeding; K29.71 Gastritis, unspecified, with bleeding; K29.91 Gastroduodenitis, unspecified, with bleeding; K29.81 Duodenitis with bleeding; E87.21 Acute metabolic acidosis; R64 Cachexia; K22.2 Esophageal obstruction; D50.9 Iron deficiency anemia, unspecified; F10.20 Alcohol dependence, uncomplicated; K25.9 Gastric ulcer, unspecified as acute or chronic, without hemorrhage or perforation; R18.8 Other ascites; K52.9 Noninfective gastroenteritis and colitis, unspecified; E87.6 Hypokalemia; K44.9 Diaphragmatic hernia without obstruction or gangrene; K57.30 Diverticulosis of large intestine without perforation or abscess without bleeding; N83.8 Other noninflammatory disorders of ovary, fallopian tube and broad ligament; R74.01 Elevation of levels of liver transaminase levels; Z79.899 Other long term (current) drug therapy; Y90.9 Presence of alcohol in blood, level not specified
CPT/HCPCS: 36415; 43239; 71045; 72195; 74177; 76856; 80048; 80053; 80320; 81001; 82270; 82378; 82607; 82728; 82746; 83540; 83550; 83605; 83690; 83735; 85014; 85018; 85025; 85045; 85048; 85610; 85652; 85730; 86141; 86301; 86304; 86850; 86900; 86901; 86920; 87040; 87045; 87427; 93005; 96361; 96365; G0378; J1756; J2003; J2250; J2405; J2470; J2543; J2704; J3480